=== PATIENT | female | born 1965 | race Caucasian/White ===

== ENCOUNTER 2016-12-13 02:40 | Emergency (ER) | payer OTHER ==
[~2016-12-13] VITALS: Ht 160 cm; Wt 61.2 kg
[2016-12-13 02:45] VITALS: BP 103/74
[2016-12-13] MEDS ORDERED: HYDR-971 PO (03:23)
[2016-12-13] MEDS ORDERED: NAPR500T PO (03:23)
[2016-12-13] MEDS ORDERED: KETOROLAC 60 MG/2 ML VIAL. IM ONE ×2 (03:28→03:30)
--- NOTE | 2016-12-13 03:29 | PHYS DOC ---
General Chief Complaint: ANKLE PROBLEM Stated Complaint: ANKLE INJURY Time Seen by MD: 02:59 Source: patient Exam Limitations: intoxication Problems: History of Present Illness Initial Comments Pt is 51/F to ED with son c/o left ankle pain. Pt states 1-2 hours ago at [employer] she must have twisted her ankle. Complains of sudden onset severe lateral left ankle pain unwilling to bear weight. No numbness/tingling/weakness/radiating sx, admits to "5 beers" tonight. No prearrival treatment, requesting pain meds c/o sharp 10/10 distal fibula swelling noted. No other injury Onset: this morning Severity: severe Pain/Injury Location: left ankle Method of Injury: twisted Modifying Factors: worse with jarring, worse with movement, improves with rest Allergies: Coded Allergies: tramadol (Verified Allergy, Unknown, 12/13/16) bad dreams Uncoded Allergies: florian (Allergy, Unknown, Rash, 12/13/16) Past Medical History Medical History: other (anxiety, depression, spontaneous PTX x 3) Surgical History: noncontributory (CS) Social History Smoker: cigarettes Alcohol: occasionally (heavy tonight, was at [employer] ) Drugs: none Review of Systems Constitutional: denies chills, denies fever Respiratory: denies cough, denies shortness of breath Cardiovascular: denies chest pain, denies palpitations Gastrointestinal: denies nausea, denies vomiting Musculoskeletal: see HPI Psychiatric/Neurological: see HPI Physical Exam General Appearance: WD/WN, moderate distress (etoh odor) Cardiovascular/Respiratory: normal peripheral pulses, no respiratory distress Back: no CVA tenderness, no vertebral tenderness Knees: bilateral knee non-tender, bilateral knee normal inspection, bilateral knee normal range of motion, bilateral knee no evidence of injury Ankles: right ankle non-tender, right ankle normal inspection, right ankle normal range of motion, right ankle no evidence of injury, left ankle other ( point tender distal fibula w/swelling no deformity otherwise normal exam) Feet: bilateral foot non-tender, bilateral foot normal inspection, bilateral foot normal range of motion, bilateral foot no evidence of injury Neurologic/Tendon: normal sensation, normal motor functions, normal tendon functions, responds to pain, no evidence tendon injury Psychiatric: oriented x 3 (intoxicated but appropriate, no lateralizing neurodefs, LLE neurovascularly intact) Skin: normal color, warm/dry Orders, Labs, Meds L Ankle: mildly displaced distal fibula fx interpreted by Dr Reese Neurovasc intact after splinting Departure Time of Disposition: 03:26 Disposition: 01 HOME, SELF-CARE Diagnosis: mildly displaced left distal fibula fracture, alco Condition: GOOD Patient Instructions: Fibular Fracture, Ankle, Adult, Treated with or without Immobilization, RICE - Routine Care for Injuries, [id number] Additional Instructions: RICE, see handout. Stop smoking, seek medical assistance if necessary. Aggressive hydration with gatorade, water. Nonweight bearing crutches only until doctor follow up. Wear splint except when bathing. Rx: naprosyn, [place] 5mg #20 Take norco with food to avoid nausea/vomitting. Take OTC stool softeners and drink extra fluids to avoid opiate associated constipation. Follow up with your doctor Wednesday for recheck. As you are already established with orthopedics, you may alternatively choose to follow up directly with your orthopedic surgeon this week call Wednesday to schedule. Return to ED with new or changing symptoms. HAMZAH REESE DO Dec 13, 2016 03:29
[2016-12-13] MEDS ORDERED: ACETAMINOPHEN/CODEINE 300/30MG 4TABLET STARTPACK. PO ONE ×3 (03:30→04:30)
--- NOTE | 2016-12-13 08:53 | RAD ---
Three-view left ankle radiographs 12/13/2016 Clinical history: Injury with severe left ankle pain. AP, lateral and oblique digital radiographs of left ankle were obtained. An acute transverse fracture of the distal left fibular metaphysis is seen which is approximately 1.4 cm superior to the inferior aspect of the lateral malleolus. The distal fracture fragment is mildly displaced laterally. There is associated soft tissue swelling. No additional fracture is seen. Impression: Acute transverse fracture of the lateral malleolus of the left ankle as outlined above.
== END 2016-12-13 04:00 | disposition home or self-care (01) ==
LOC: ER 02:40
DX: S82.62XA Displaced fracture of lateral malleolus of left fibula, initial encounter for closed fracture (principal); F17.210 Nicotine dependence, cigarettes, uncomplicated; Z88.6 Allergy status to analgesic agent; X58.XXXA Exposure to other specified factors, initial encounter; Y93.89 Activity, other specified; Y99.8 Other external cause status; Y92.89 Other specified places as the place of occurrence of the external cause
CPT/HCPCS: 73610; 96372; 99284; J1885; J3010

== ENCOUNTER 2020-01-24 00:45 | Inpatient (IN) | payer BC, OTHER ==
[2020-01-24] VITALS (20 sets, daily range): BP systolic 108–163; BP diastolic 38–84
[~2020-01-24] VITALS: Ht 160 cm; Wt 66.1 kg
[~2020-01-24 00:45] MED LIST: HYDR-3165 PO; NAPR-683 PO
--- NOTE | 2020-01-24 00:50 | PHYS DOC ---
Past History Past Medical History: Anxiety, Bronchitis, COPD, Depression, Other Past Surgical History: Smoking: Cigarettes Alcohol Use: Occasionally Drug Use: None General Adult HPI: HPI: "I was just trying to kill myself.. I just wanted to go to [facility] to be with my MOM..." I don't seem to be making .. any one at home happy.... ..I took all those tylenol..a 100 of them (extra strength).. and all that happen I got sick and started puking every where..." Patient is a 54 year old female who presents with above hx and complaints of attempting to kill her self by overdose of Tylenol. Patient took approximately [id number] mg tablets of Tylenol at 0030. Pt. at approximately 0130 hrs started having episodes of vomiting. Pt. admit to drinking at least 3 beers tonight. Patient admits to past episodes of depression. Patient states there has been some family social issues which have caused her become more depressed in the last several days. No recent travel. No specific ill contacts. Normally follows with Dr. Troncoso. Review of Systems: Review of Systems: Constitutional: Denies fever or chills Eyes: Denies change in visual acuity HENT: Denies nasal congestion or sore throat Respiratory: Denies cough or shortness of breath Cardiovascular: Denies chest pain or edema GI: Complaints of, nausea, vomiting,. Denies bloody stools or diarrhea : Denies dysuria Musculoskeletal: Denies back pain or joint pain Integument: Denies rash Neurologic: Denies headache, focal weakness or sensory changes Endocrine: Denies polyuria or polydipsia Lymphatic: Denies swollen glands Psychiatric: Complains of depression or anxiety Family History: Family History: Noncontributory Current Medications: Current Meds: See nursing for home meds Allergies: Allergies: Allergies Coded Allergies Type Severity Reaction Last Updated Verified tramadol Allergy Unknown 12/13/16 Yes Uncoded Allergies Type Severity Reaction Last Updated Verified florian Allergy Unknown Rash 12/13/16 Physical Exam: PE: Constitutional: , Moderate emotional distress, appearance of Intoxication HENT: Normocephalic, atraumatic, bilateral external ears normal, oropharynx moist, no oral exudates, nose normal. [] Eyes: PERRLA, EOMI, conjunctiva normal, no discharge. [] Neck: Normal range of motion, no tenderness, supple, no stridor. [] Cardiovascular: Tachycardia heart rate regular rhythm, no murmur [] Lungs & Thorax: Bilateral breath sounds are equal apex with scattered wheezes on auscultation [] Abdomen: Bowel sounds hyperactive,, soft, no tenderness, no masses, no pulsatile masses. Old surgical scar. Skin: Warm, dry, no erythema, no rash. [] Back: No tenderness, no CVA tenderness. [] Extremities: No tenderness, no cyanosis, no clubbing, ROM intact, no edema. No cording appreciated. Neurologic: Alert and oriented X 3, moves all extremities on request, , distal sensory function, no focal deficits noted. Appears to have a dis coordinated gait.. Psychologic: Affect anxious judgement appears obviously impaired and patient appears to be very intoxicated, mood depressed. Admits to suicide attempt with Tylenol EKG: EKG: My interpretation of EKG shows a sinus rhythm at 96 bpm. No findings of acute STEMI of contralateral changes does appear to have some low voltage. [] Radiology/Procedures: Radiology/Procedures: My interpretation chest x-ray shows chronic emphysematous COPD changes. No large consolidation or pneumonia. No free air in the diaphragm. Does have a foreign body area on right axillary area. [] Heart Score: HEART Score for Chest Pain: HEART Score for Chest Pain Response (Comments) Value History Slighlty/Non-Suspicious 0 ECG Nonspecific Repolarizatio 1 Age >45 - < 65 1 Risk Factors 1 or 2 Risk Factors 1 Troponin < Normal Limit 0 Total 3 Risk Factors: Risk Factors: DM, Current or recent (<one month) smoker, HTN, HLP, family history of CAD, obesity. Risk Scores: Score 0 - 3: 2.5% MACE over next 6 weeks - Discharge Home Score 4 - 6: 20.3% MACE over next 6 weeks - Admit for Clinical Observation Score 7 - 10: 72.7% MACE over next 6 weeks - Early Invasive Strategies Course & Med Decision Making: Course & Med Decision Making Pertinent Labs and Imaging studies reviewed. (See chart for details) Discussed presentation, testing and tx plan with . Admit to ICU and start the protocol. Pt. started on NAC 150mg/kg over 60 min., and then 50mg /kg in 500 D5W over next 4hrs. Critical care 90 miln. Impression: 1. Over Dose of Tylenol 2. Suicide Attempt 3. Depression 4. ETOH 100 [] Enriqueta Disclaimer: Enriqueta Disclaimer: This electronic medical record was generated, in whole or in part, using a voice recognition dictation system. Departure Departure: Referrals: TURNER LUNA (PCP) Enriqueta Disclaimer This chart was dictated in whole or in part using Voice Recognition software in a busy, high-work load, and often noisy Emergency Department environment. It may contain unintended and wholly unrecognized errors or omissions. RANJAN BAKER MD Jan 24, 2020 00:50
[2020-01-24] MEDS ORDERED: IV RINGERS SOLUTION,LACTATED 1,000 ML IV SCH ×2 (01:00→03:15)
[2020-01-24 01:21] LABS: BASO % 0 % (0-3); EOS # 0.1 x10^3/uL (0.0-0.7); EOS % 1 % (0-3); HEMATOCRIT 41.4 % (36.0-47.0); HEMOGLOBIN 13.7 g/dL (12.0-15.5); LYMPH # 2.3 x10^3/uL (1.0-4.8); LYMPH % 22 % (24-48); MEAN CORPUSCULAR HEMOGLOBIN 31 pg (25-35); MEAN CORPUSCULAR HGB CONC 33 g/dL (31-37); MEAN CORPUSCULAR VOLUME 94 fL (79-100); MONO # 0.7 x10^3/uL (0.0-1.1); MONO % 6 % (0-9); NEUT # 7.4 x10^3uL (1.8-7.7); NEUT % 70 % (31-73); PLATELET COUNT 272 x10^3/uL (140-400); RED BLOOD COUNT 4.42 x10^6/uL (3.50-5.40); RED CELL DISTRIBUTION WIDTH 14.4 % (11.5-14.5); WHITE BLOOD COUNT 10.5 x10^3/uL (4.0-11.0)
[2020-01-24 01:27] LABS: BACTERIA,URINE 0 /HPF (0-FEW); BILIRUBIN,URINE NEG (NEG); CLARITY,URINE CLEAR; COLOR,URINE YELLOW; GLUCOSE,URINE NEG (NEG); NITRITE,URINE NEG (NEG); RBC,URINE 0 /HPF (0-2); SQUAMOUS EPITHELIAL CELL,UR FEW /LPF; UROBILINOGEN,URINE 0.2 mg/dL (0.2 mg/dL); WBC,URINE RARE /HPF (0-4)
[2020-01-24 01:29] LABS: CALCIUM 8.6 mg/dL (8.5-10.1); CREATININE 0.8 mg/dL (0.6-1.0); GFR 74.7; POTASSIUM 3.9 mmol/L (3.5-5.1)
[2020-01-24 01:30] LABS: BARBITURATES NEG (NEG); BENZODIAZEPINES NEG (NEG); CANNABINOIDS NEG (NEG); COCAINE NEG (NEG); METHADONE NEG (NEG); OPIATES NEG (NEG); PHENCYCLIDINE NEG (NEG)
[2020-01-24 01:42] LABS: AMPHETAMINE/METHAMPHETAMINE NEG (NEG)
[2020-01-24 01:42] LABS: ALBUMIN 3.7 g/dL (3.4-5.0); DIRECT BILIRUBIN 0.1 mg/dL (0.0-0.2); ETHANOL 100 mg/dL (0-10); MAGNESIUM 1.9 mg/dL (1.8-2.4); SALIC 5.1 mg/dL (2.8-20.0); TOTAL BILIRUBIN 0.3 mg/dL (0.2-1.0); TOTAL PROTEIN 7.6 g/dL (6.4-8.2)
[2020-01-24] MEDS ORDERED: FOLIC ACID 1 MG TABLET PO ONE (02:00)
[2020-01-24] MEDS ORDERED: MVI, ADULT NO.4 WITH VIT K 10 ML, THIAMINE INJ 100 MG in IV RINGERS SOLUTION,LACTATED 1... IV ONE (02:00)
[2020-01-24] MEDS ORDERED: THIAMINE 200 MG/2 ML VIAL. IV ONE (02:36)
[2020-01-24] MEDS ORDERED: MVI, ADULT NO.4 WITH VIT K 10 ML VIAL IV ONE (02:36)
[2020-01-24 02:49] LABS: ACETAMIN 428.4 mcg/mL (10-30)
[2020-01-24] MEDS ORDERED: DEXTROSE 5% IV ONE ×5 (03:15→19:30)
[2020-01-24] MEDS ORDERED: ACETYLCYSTEINE IV ONE ×5 (03:15→19:30)
[2020-01-24] MEDS ORDERED: ONDANSETRON PF 4 MG/2 ML VIAL. IVP PRN (03:15)
[2020-01-24] MEDS ORDERED: ACETYLCYSTEINE INJ 6 GM/30 ML VIAL IV ONE ×3 (03:29→04:13)
[2020-01-24] MEDS ORDERED: IV DEXTROSE 5% 250 ML IV ONE (03:29)
[2020-01-24] MEDS ORDERED: IV DEXTROSE 5% 500 ML ONE (04:13)
[2020-01-24] MEDS ORDERED: PARO40TA3 PO (04:47)
[2020-01-24] MEDS ORDERED: IPRATRPIUM/ALBUTEROL 0.5/2.5MG 3 ML NEBU. ONE (05:29)
--- NOTE | 2020-01-24 05:50 | RAD ---
EXAM: CHEST ONE VIEW. HISTORY: Overdose, altered mental status. COMPARISON: 10/13/2009. FINDINGS: A frontal view of the chest is obtained. Mild interstitial opacities in the bases may reflect atelectasis. There is a calcified granuloma in the left base. There is no pneumothorax or pleural effusion. The heart is not enlarged. IMPRESSION: 1. Bibasilar atelectasis versus mild atypical infiltrates. Electronically signed by: Brian Royal MD (01/24/2020 5:47 AM) [facility]
[2020-01-24] MEDS: IPRATRPIUM/ALBUTEROL 0.5/2.5MG 3 ML NEBU. NEB SCH ×4 (05:52→19:17)
[2020-01-24 07:21] LABS: ACETAMIN 387.6 mcg/mL (10-30); SALIC 3.9 mg/dL (2.8-20.0)
--- NOTE | 2020-01-24 09:46 | EKG ---
[address] [address] Test Date: 2020-01-24 Test Time: 02:22:51 Pat Name: DELVIN CAMPBELL Department: Room: Gender: F Mining Technician: : 1965 Requested By: RANJAN BAKER Order Number: [id number] Reading MD: Measurements Intervals [place] Rate: 96 P: 53 MN: 138 QRS: 79 QRSD: 72 T: 71 QT: 346 QTc: 438 Interpretive Statements SINUS RHYTHM NORMAL ECG RI6.02 No previous ECG available for comparison
[2020-01-24 11:41] LABS: ACETAMIN 193.3 mcg/mL (10-30)
[2020-01-24 16:39] LABS: BASO % 1 % (0-3); EOS % 0 % (0-3); HEMATOCRIT 34.2 % (36.0-47.0); HEMOGLOBIN 11.4 g/dL (12.0-15.5); LYMPH # 1.7 x10^3/uL (1.0-4.8); LYMPH % 28 % (24-48); MEAN CORPUSCULAR HEMOGLOBIN 31 pg (25-35); MEAN CORPUSCULAR HGB CONC 33 g/dL (31-37); MEAN CORPUSCULAR VOLUME 92 fL (79-100); MONO # 0.3 x10^3/uL (0.0-1.1); MONO % 5 % (0-9); NEUT # 3.9 x10^3uL (1.8-7.7); NEUT % 66 % (31-73); PLATELET COUNT 229 x10^3/uL (140-400); RED BLOOD COUNT 3.72 x10^6/uL (3.50-5.40); RED CELL DISTRIBUTION WIDTH 14.4 % (11.5-14.5); WHITE BLOOD COUNT 5.9 x10^3/uL (4.0-11.0)
[2020-01-24 16:40] LABS: CALCIUM 7.5 mg/dL (8.5-10.1); CREATININE 0.8 mg/dL (0.6-1.0); GFR 74.7; POTASSIUM 3.3 mmol/L (3.5-5.1)
[2020-01-24 16:52] LABS: ACETAMIN 74.9 mcg/mL (10-30)
[2020-01-24 17:04] LABS: ALBUMIN 2.6 g/dL (3.4-5.0); DIRECT BILIRUBIN 0.2 mg/dL (0.0-0.2); TOTAL BILIRUBIN 0.3 mg/dL (0.2-1.0); TOTAL PROTEIN 5.5 g/dL (6.4-8.2)
--- NOTE | 2020-01-24 18:06 | HP ---
ADMIT DATE: 01/24/2020 HISTORY OF PRESENT ILLNESS: The patient is a 54-year-old female patient, who was brought to the Emergency Room stating that she was trying to kill herself. "I just wanted to go to [facility] to be with my mom. I don't seem to be making anyone at home happy. I took all these Tylenol, 100 of them extra strength and all that happened, I got sick and started puking everywhere." She apparently attempted to kill herself by overdose of Tylenol. The patient took approximately 100 x 500 mg tablet Tylenol. At approximately 1:30 p.m., started having episodes of vomiting. The patient admits to drinking at least 3 beers and she admits to past episode of depression. She stated there has been some family side of issues, which has caused her to become more depressed in the last several days. No recent travel or specific ill contact. She normally follows with Dr. Boyer. She was evaluated in the Emergency Room and was diagnosed with overdose of Tylenol, suicidal attempt, depression and alcohol abuse. Her Tylenol level at around almost 1 o'clock this afternoon was 428. She was started on acetylcysteine treatment after contacting the Poison Control Center. PAST MEDICAL HISTORY: Significant for depression, COPD and anxiety. PAST SURGICAL HISTORY: Significant for . ALLERGIES: She is allergic to TRAMADOL AND ZINC. FAMILY HISTORY: Apparently, her mother has committed suicide. SOCIAL HISTORY: She lives with 2 of her children, one of them is 16 years old. She smokes and drinks alcohol occasionally, but does not use any drugs. She currently works at [employer]. She apparently stated that she has changed jobs about 3 times and has been under severe financial stress after her son moved back with her. PHYSICAL EXAMINATION: GENERAL: On arrival to the Emergency Room, the patient was in moderate emotional distress and appearance of intoxication. However, there was no pallor, jaundice, cyanosis or thyromegaly. No jugular venous distention or limb edema. VITAL SIGNS: Her heart rate was 77, blood pressure was 112/61, temperature 98.6, respiratory rate 22, and oxygen saturation was 98% on room air. HEAD, EYES, EARS, NOSE AND THROAT: Showed normocephalic, atraumatic. NECK: Supple. HEART: Showed normal first and second heart sounds. No gallop, rub or murmur. CHEST: Clear to auscultation. No crepitation or rhonchi. ABDOMEN: Distended, soft, nontender. NEUROLOGIC: She was alert, oriented x 3. EXTREMITIES: She moves all her extremities spontaneously. PSYCHOLOGIC: Affect was anxious. Judgment appears obviously impaired. The patient appears to be very intoxicated and depressed. Admits to suicide attempt with Tylenol. She has had an EKG done, which showed that she was in sinus rhythm at 96 beats per minute with no finding of acute ST-segment elevation. Her chest x-ray showed chronic emphysematous COPD changes. No large consolidation or pneumonia. No free air in diaphragm. Does have foreign body area in the right axillary area. LABORATORY DATA: Showed a white cell count of 10,500, hemoglobin 13.7, hematocrit 41, MCV 94 and platelet count 172,000 with normal manual differential. Her prothrombin time initially was 10.7, INR of 1, aPTT was 25. Four hours later, her prothrombin time was 12.1, INR 1.2, APTT was 29. Her chemistry showed a serum sodium 136, potassium 3.9, chloride 99, bicarbonate 22, anion gap of 15, BUN 7, creatinine 0.8, estimated GFR was 74 mL per minute. Her glucose 133, calcium was 8.6, magnesium was 1.9. Total bilirubin, AST, ALT, alkaline phosphatase were normal. Her total protein was 7.6, albumin was 3.7. Her urinalysis was essentially unremarkable and urine toxic screen showed her acetaminophen level was 428.4, for which she was started on acetylcysteine as recommended by Poison Control Center. Once her Tylenol level drops down to below therapeutic level and the patient remains stabilized, we will consult the psychiatrist. I will repeat all her labs again tomorrow. This is a 54-year-old female patient who was admitted with suicidal attempt with an overdose of Tylenol of about 50 grams. She is known to have COPD and depression, for which she is on Prozac. SULTANA NAVARRO MD DR: VEE/saba JOB#: [id number] / [id number]
[2020-01-24] MEDS: POTASSIUM CL 40MEQ IN 0.9%NACL 1,000 ML IV SCH (18:39)
--- NOTE | 2020-01-24 20:47 | PDOC ---
Exam Note: Ortiz Note: Please also refer to the separate dictated note~for this date of service dictated separately.~Patient seen individually. Discussed the patient with Nursing staff reviewed the chart.~Reviewed interim history and current functioning. Reviewed vital signs,~Labs/ Radiology~and current medications noted below. Continue current treatment with the changes noted in the dictated addendum note Assessment: Vital Signs/I&O: Vital Signs Date Time Temp Pulse Resp B/P (MAP) Pulse Ox O2 Delivery O2 Flow Rate FiO2 01/24/20 20:00 91 11 154/77 (102) 95 Room Air 01/24/20 19:00 97.6 I & O 01/23/20 01/23/20 01/24/20 14:59 22:59 06:59 Intake Total 2250 ml Output Total 50 ml Balance 2200 ml Labs: Laboratory Tests Test 01/24/20 00:58 01/24/20 01:05 01/24/20 06:23 01/24/20 11:18 White Blood Count 10.5 x10^3/uL (4.0-11.0) Red Blood Count 4.42 x10^6/uL (3.50-5.40) Hemoglobin 13.7 g/dL (12.0-15.5) Hematocrit 41.4 % (36.0-47.0) Mean Corpuscular Volume 94 fL (79-100) Mean Corpuscular Hemoglobin 31 pg (25-35) Mean Corpuscular Hemoglobin Concent 33 g/dL (31-37) Red Cell Distribution Width 14.4 % (11.5-14.5) Platelet Count 272 x10^3/uL (140-400) Neutrophils (%) (Auto) 70 % (31-73) Lymphocytes (%) (Auto) 22 % (24-48) L Monocytes (%) (Auto) 6 % (0-9) Eosinophils (%) (Auto) 1 % (0-3) Basophils (%) (Auto) 0 % (0-3) Neutrophils # (Auto) 7.4 x10^3uL (1.8-7.7) Lymphocytes # (Auto) 2.3 x10^3/uL (1.0-4.8) Monocytes # (Auto) 0.7 x10^3/uL (0.0-1.1) Eosinophils # (Auto) 0.1 x10^3/uL (0.0-0.7) Basophils # (Auto) 0.0 x10^3/uL (0.0-0.2) Prothrombin Time 10.7 SEC (9.4-11.4) Prothrombin Time INR 1.0 (0.9-1.1) Activated Partial Thromboplast Time 25 SEC (23-33) Sodium Level 136 mmol/L (136-145) Potassium Level 3.9 mmol/L (3.5-5.1) Chloride Level 99 mmol/L (98-107) Carbon Dioxide Level 22 mmol/L (21-32) Anion Gap 15 (6-14) H Blood Urea Nitrogen 7 mg/dL (7-20) Creatinine 0.8 mg/dL (0.6-1.0) Estimated GFR (Cockcroft-Gault) 74.7 Glucose Level 133 mg/dL (70-99) H Calcium Level 8.6 mg/dL (8.5-10.1) Magnesium Level 1.9 mg/dL (1.8-2.4) Total Bilirubin 0.3 mg/dL (0.2-1.0) Direct Bilirubin 0.1 mg/dL (0.0-0.2) Aspartate Amino Transferase (AST) 17 U/L (15-37) Alanine Aminotransferase (ALT) 20 U/L (14-59) Alkaline Phosphatase 78 U/L (46-116) Creatine Kinase 88 U/L (26-192) Troponin I Quantitative < 0.017 ng/mL (0-0.055) HF-Avr-E-Type Natriuretic Peptide 42 pg/mL (0-124) Total Protein 7.6 g/dL (6.4-8.2) Albumin 3.7 g/dL (3.4-5.0) Lipase 188 U/L (73-393) Thyroid Stimulating Hormone (TSH) 2.455 uIU/mL (0.358-3.740) Salicylates Level 5.1 mg/dL (2.8-20.0) 3.9 mg/dL (2.8-20.0) Salicylate Last Dose Date Unknown 01/23/20 Salicylate Last Dose Time Unknown 2300 Acetaminophen Level 428.4 mcg/mL (10-30) *H 387.6 mcg/mL (10-30) *H 193.3 mcg/mL (10-30) H Acetaminophen Last Dose Date Unknown 01/23/20 01/24/20 Acetaminophen Last Dose Time Unknown 2300 0000 Ethyl Alcohol Level 100 mg/dL (0-10) H Urine Collection Type Unknown Urine Color Yellow Urine Clarity Clear Urine pH 5.0 Urine Specific [place] <=1.005 Urine Protein Neg (NEG-TRACE) Urine Glucose (UA) Neg mg/dL (NEG) Urine Ketones (Stick) Neg mg/dL (NEG) Urine Blood Neg (NEG) Urine Nitrite Neg (NEG) Urine Bilirubin Neg (NEG) Urine Urobilinogen Dipstick 0.2 mg/dL (0.2 mg/dL) Urine Leukocyte Esterase Neg (NEG) Urine RBC 0 /HPF (0-2) Urine WBC Rare /HPF (0-4) Urine Squamous Epithelial Cells Few /LPF Urine Bacteria 0 /HPF (0-FEW) Urine Opiates Screen Neg (NEG) Urine Methadone Screen Neg (NEG) Urine Barbiturates Neg (NEG) Urine Phencyclidine Screen Neg (NEG) Urine Amphetamine/Methamphetamine Neg (NEG) Urine Benzodiazepines Screen Neg (NEG) Urine Cocaine Screen Neg (NEG) Urine Cannabinoids Screen Neg (NEG) Urine Ethyl Alcohol Pos (NEG) Glucose (Fingerstick) 140 mg/dL (70-99) H Test 01/24/20 16:23 01/24/20 16:26 White Blood Count 5.9 x10^3/uL (4.0-11.0) Red Blood Count 3.72 x10^6/uL (3.50-5.40) Hemoglobin 11.4 g/dL (12.0-15.5) L Hematocrit 34.2 % (36.0-47.0) L Mean Corpuscular Volume 92 fL (79-100) Mean Corpuscular Hemoglobin 31 pg (25-35) Mean Corpuscular Hemoglobin Concent 33 g/dL (31-37) Red Cell Distribution Width 14.4 % (11.5-14.5) Platelet Count 229 x10^3/uL (140-400) Neutrophils (%) (Auto) 66 % (31-73) Lymphocytes (%) (Auto) 28 % (24-48) Monocytes (%) (Auto) 5 % (0-9) Eosinophils (%) (Auto) 0 % (0-3) Basophils (%) (Auto) 1 % (0-3) Neutrophils # (Auto) 3.9 x10^3uL (1.8-7.7) Lymphocytes # (Auto) 1.7 x10^3/uL (1.0-4.8) Monocytes # (Auto) 0.3 x10^3/uL (0.0-1.1) Eosinophils # (Auto) 0.0 x10^3/uL (0.0-0.7) Basophils # (Auto) 0.0 x10^3/uL (0.0-0.2) Prothrombin Time 12.1 SEC (9.4-11.4) H Prothrombin Time INR 1.2 (0.9-1.1) H Activated Partial Thromboplast Time 29 SEC (23-33) Sodium Level 132 mmol/L (136-145) L Potassium Level 3.3 mmol/L (3.5-5.1) L Chloride Level 101 mmol/L (98-107) Carbon Dioxide Level 22 mmol/L (21-32) Anion Gap 9 (6-14) Blood Urea Nitrogen 9 mg/dL (7-20) Creatinine 0.8 mg/dL (0.6-1.0) Estimated GFR (Cockcroft-Gault) 74.7 Glucose Level 131 mg/dL (70-99) H Calcium Level 7.5 mg/dL (8.5-10.1) L Total Bilirubin 0.3 mg/dL (0.2-1.0) Direct Bilirubin 0.2 mg/dL (0.0-0.2) Aspartate Amino Transferase (AST) 40 U/L (15-37) H Alanine Aminotransferase (ALT) 46 U/L (14-59) Alkaline Phosphatase 59 U/L (46-116) Total Protein 5.5 g/dL (6.4-8.2) L Albumin 2.6 g/dL (3.4-5.0) L Acetaminophen Level 74.9 mcg/mL (10-30) H Acetaminophen Last Dose Date None Acetaminophen Last Dose Time None Glucose (Fingerstick) 135 mg/dL (70-99) H Current Medications: Meds: Current Medications Medications (Trade) Dose Ordered Sig/Melodie Route PRN Reason Start Time Stop Time Status Last Admin Dose Admin Lactated Ringer's 1,000 ml @ 1,000 mls/hr Q1H IV 01/24/20 01:00 01/24/20 01:59 DC 01/24/20 02:27 Multivitamins/ Minerals 10 ml/ Thiamine HCl 100 mg/Lactated Ringer's 1,011.3 ml @ 1,011.3 mls/hr 1X ONCE IV 01/24/20 02:00 01/24/20 02:59 DC 01/24/20 02:00 Folic Acid (Folic Acid) 1 mg 1X ONCE PO 01/24/20 02:00 01/24/20 02:01 DC 01/24/20 03:37 Acetylcysteine 9.68 gm/Dextrose 248.4 ml @ 200 mls/hr 1X ONCE IV 01/24/20 03:15 01/24/20 04:29 DC 01/24/20 03:15 Ondansetron HCl (Zofran) 4 mg PRN Q4HRS PRN IVP NAUSEA/VOMITING 01/24/20 03:15 01/25/20 03:14 01/24/20 05:03 Albuterol/ Ipratropium (Duoneb) 3 ml RTQID NEB 01/24/20 08:00 01/25/20 07:59 01/24/20 19:17 Lactated Ringer's 1,000 ml @ 160 mls/hr Q6H15M IV 01/24/20 03:15 01/24/20 17:13 DC 01/24/20 05:48 Acetylcysteine 3.2 gm/Dextrose 516 ml @ 129 mls/hr 1X ONCE IV 01/24/20 04:30 01/24/20 08:29 DC 01/24/20 04:30 Acetylcysteine 6.45 gm/Dextrose 1,032.25 ml @ 64.516 mls/hr 1X ONCE IV 01/24/20 08:30 01/25/20 00:29 01/24/20 09:40 Potassium Chloride/Sodium Chloride 1,000 ml @ 100 mls/hr Q10H IV 01/24/20 17:15 01/24/20 18:39 Acetylcysteine 6.6 gm/Dextrose 1,033 ml @ 129.125 mls/hr 1X ONCE IV 01/24/20 19:30 01/25/20 03:29 01/24/20 19:49 I have reviewed the current psychotropics carefully including drug interactions. Risk benefit ratio favors no change other than as noted in my dictated progress note. Diagnosis: Problems: (1) Suicidal overdose IVORY LEVY MD Jan 24, 2020 20:47
[2020-01-25] VITALS (16 sets, daily range): BP systolic 132–161; BP diastolic 67–81
[2020-01-25 03:37] LABS: ACETAMIN 7.2 mcg/mL (10-30)
[2020-01-25] MEDS: POTASSIUM CL 40MEQ IN 0.9%NACL 1,000 ML IV SCH ×2 (03:56→13:15)
[2020-01-25] MEDS ORDERED: ACETYLCYSTEINE IV ONE ×2 (04:00→14:00)
[2020-01-25] MEDS ORDERED: DEXTROSE 5% IV ONE ×2 (04:00→14:00)
[2020-01-25] MEDS ORDERED: ACETYLCYSTEINE INJ 6 GM/30 ML VIAL IV ONE (04:01)
[2020-01-25] MEDS: IPRATRPIUM/ALBUTEROL 0.5/2.5MG 3 ML NEBU. NEB SCH (04:43)
--- NOTE | 2020-01-25 08:00 | CONS ---
DATE OF CONSULTATION: 01/24/2020 PSYCHIATRIC CONSULTATION This note covers elements not covered in my initial note, 01/24/2020. IDENTIFYING DATA: The patient is a 54-year-old female, seen in ICU bed 4, [facility], for a psychiatric consult requested by Dr. Wise on account of the patient's suicide attempt with an overdose of 500 mg Tylenol #100, after she had imbibed alcohol and this happened on 01/23/2020. Reportedly, she did not tell anyone, but her son discovered her and then called emergency services and she was admitted to the ICU. The patient made statements that she was trying to kill herself, but was sorry she did not do that. CHIEF COMPLAINT: "I feel very embarrassed at what I did. No, I would never do it again. I have never done it in the past. There is a lot of stress. I am a single parent and a 30-year-old son is back home living with me since he is getting a divorce. My 16-year-old son lives at home as well. I work at the [employer]." HISTORY OF PRESENT ILLNESS: The patient states she took the overdose because she just [facility] "to be with my mom." Reportedly, the patient's mother and sister had committed suicide in the past. The patient stated she felt she was not making anyone at home happy. She took the overdose around 1:30 p.m., started having vomiting and has had 3 beers before that. She has been on Paxil for an extended period of time by her primary care physician, Dr. Rojas. No current psychotic symptoms and she currently denies current active suicidal ideation. No homicidal ideation. PAST PSYCHIATRIC HISTORY: She has been in psychotherapy in the past with Felecia Salamanca, but not for several years. PAST MEDICAL HISTORY: COPD, anxiety. PAST SURGICAL HISTORY: . ALLERGIES: TRAMADOL, ZINC. SOCIAL HISTORY: The patient lives at home with her 2 children, sons, age 30 and 16. She works at the [employer]. She uses alcohol socially. MENTAL STATUS EXAMINATION: The patient is awake, alert, oriented. Speech is coherent. Thought processes goal directed. Intellect average. Insight good. Judgment intact. Mood is somewhat anxious, dysphoric, but denies active suicidal or homicidal ideation. Attention span is fair. LABORATORY DATA: Reviewed. IMPRESSION: Major depressive disorder, recurrent versus adjustment disorder with depressed mood and anxiety. Status post suicide attempt. Rest as above. RECOMMENDATIONS: From a psychiatric standpoint, the patient currently denies suicidal ideation. She agrees to start psychotherapy again with Felecia Salamanca or at the [facility] and see the psychiatrist at the [facility]. She may restart her Paxil at discharge since it had been stopped during this hospitalization per Dr. Lagunas. Further treatment would have to be maintained outpatient including psychotherapy and psychiatric visits. Dr. Lagunas, thank you for the opportunity to participate in your patient's care. We will follow with you. IVORY LEVY MD DR: KRYSTIAN/saba JOB#: [id number] / [id number]
[2020-01-25 11:41] LABS: BASO % 1 % (0-3); EOS % 1 % (0-3); HEMATOCRIT 34.5 % (36.0-47.0); HEMOGLOBIN 11.3 g/dL (12.0-15.5); LYMPH # 1.3 x10^3/uL (1.0-4.8); LYMPH % 24 % (24-48); MEAN CORPUSCULAR HEMOGLOBIN 31 pg (25-35); MEAN CORPUSCULAR HGB CONC 33 g/dL (31-37); MEAN CORPUSCULAR VOLUME 93 fL (79-100); MONO # 0.3 x10^3/uL (0.0-1.1); MONO % 5 % (0-9); NEUT % 70 % (31-73); PLATELET COUNT 199 x10^3/uL (140-400); RED BLOOD COUNT 3.71 x10^6/uL (3.50-5.40); RED CELL DISTRIBUTION WIDTH 14.2 % (11.5-14.5); WHITE BLOOD COUNT 5.6 x10^3/uL (4.0-11.0)
[2020-01-25 11:46] LABS: ALT (SGPT) 37 U/L (14-59); AST (SGOT) 24 U/L (15-37)
[2020-01-25 11:49] LABS: ALBUMIN 2.5 g/dL (3.4-5.0); ALBUMIN/GLOBULIN RATIO 0.9 (1.0-1.7); CALCIUM 8.3 mg/dL (8.5-10.1); CREATININE 0.7 mg/dL (0.6-1.0); GFR 87.2; POTASSIUM 4.1 mmol/L (3.5-5.1); TOTAL BILIRUBIN 0.2 mg/dL (0.2-1.0); TOTAL PROTEIN 5.4 g/dL (6.4-8.2)
[2020-01-25 18:04] LABS: ACETAMIN < 2.0 mcg/mL (10-30)
--- NOTE | 2020-01-25 20:04 | PN ---
DATE: 01/25/2020 SUBJECTIVE: The patient is resting, slightly propped up in bed, in no apparent distress. She is awake, alert. On questioning her, denied any complaint. Nursing staff did not voice any concern and stated that she has an uneventful night. PHYSICAL EXAMINATION: GENERAL: When I examined her, she looked well and was definitely no jaundice or cyanosis. No lymphadenopathy, no thyromegaly. No jugular venous distention or limb edema. VITAL SIGNS: Her heart rate was 101, blood pressure was 148/75, temperature was 99. Her respiratory rate was 30 and oxygen saturation was 96% on room air. HEAD, EYES, EARS, NOSE AND THROAT: Showed normocephalic, atraumatic. NECK: Supple. CARDIAC: Normal first and second heart sounds. No gallop, rub or murmur. CHEST: Clear to auscultation. No crepitation or rhonchi. ABDOMEN: Distended, soft, nontender. No guarding or rigidity. No organomegaly. All hernial orifice intact. Bowel sounds normal. NEUROLOGIC: She was awake, alert, responding appropriately. All cranial nerves intact. She moves extremities without difficulty. She ambulates without assistance or assistive devices. Her intake was 2215, no output was recorded. LABORATORY DATA: Her lab work this morning showed a white cell count 5600, hemoglobin 11, hematocrit 34, MCV 93, and platelet count of 199,000. Her chemistry showed a serum sodium 140, potassium 4.1, chloride 110, bicarbonate 22, anion gap of 8, BUN 5, creatinine 0.7, estimated GFR was 87 mL per minute. Her glucose 128, calcium was 8.3. Total bilirubin, AST, ALT, alkaline phosphatase were normal. Total protein was 5.4. Albumin was 2.5. Her acetaminophen level is 3 mcg/mL. ASSESSMENT: 1. Suicidal attempt with an overdose of Tylenol of about 50 grams. 2. The patient is known to have chronic obstructive pulmonary disease. 3. Depression and anxiety. The patient was treated with acetylcysteine as per protocol under the guidance of [facility]. She was also hypokalemic and we did replenish her potassium and her serum potassium this morning was up to 4.1 from 3.3. No derangement of her liver enzymes. We did consult the [facility] for evaluation and treatment as she probably needs an inpatient psychiatric treatment. SULTANA NAVARRO MD DR: Juan Luis JOB#: [id number] / [id number]
== END 2020-01-25 20:05 | disposition home or self-care (01) | DRG 918 ==
LOC: ER 00:45 → ICU 03:45
PROVIDERS: ADMIT Hospitalist; ATTEND Hospitalist
DX: T39.1X2A Poisoning by 4-Aminophenol derivatives, intentional self-harm, initial encounter (principal); F33.9 Major depressive disorder, recurrent, unspecified; F41.9 Anxiety disorder, unspecified; J44.9 Chronic obstructive pulmonary disease, unspecified; F17.210 Nicotine dependence, cigarettes, uncomplicated; F10.10 Alcohol abuse, uncomplicated; E87.6 Hypokalemia; Y90.5 Blood alcohol level of 100-119 mg/100 ml; Z88.5 Allergy status to narcotic agent; Z88.8 Allergy status to other drugs, medicaments and biological substances; Y92.89 Other specified places as the place of occurrence of the external cause; Z98.891 History of uterine scar from previous surgery
CPT/HCPCS: 36415; 71045; 80048; 80053; 80076; 80307; 80329; 81001; 82550; 82947; 83690; 83735; 83880; 84443; 84450; 84460; 84484; 85025; 85610; 85730; 93005; 94640; 96365; 96366; 96368; G0238; G0480; J0132; J2405; J7120; 99285-25

== ENCOUNTER → 2020-09-26 | Outpatient (CLI) | payer OTHER ==
[2020-01-25 18:17] VITALS: BP 132/67
[~2020-09-26] MED LIST changes: +PARO40TA3 PO
--- NOTE | 2020-09-26 14:08 | RAD ---
XR HAND_LEFT 3 VIEWS History: Reason: SMASHED HAND IN GATE THIS AM, PAIN IN 2ND DIGIT / Spl. Instructions: UNABLE TO REMOV E RING / History: Technique: 3 views left hand Comparison: None. Findings: Normal alignment. No fracture. Impression: 1. No acute osseous abnormality. Electronically signed by: Macho Nj DO (09/26/2020 2:05 PM) [id number]
== END ==
LOC: RAD 13:14
PROVIDERS: ATTEND Nurse Practitioner Family
DX: S67.22XA Crushing injury of left hand, initial encounter (principal); X58.XXXA Exposure to other specified factors, initial encounter; Y92.89 Other specified places as the place of occurrence of the external cause; Y93.89 Activity, other specified; Y99.8 Other external cause status
CPT/HCPCS: 73130

== ENCOUNTER → 2020-10-15 | Outpatient (CLI) | payer OTHER ==
[2020-01-25 18:17] VITALS: BP 132/67
--- NOTE | 2020-10-15 16:19 | RAD ---
Left hand 3 views: Reason for examination: Fifth metacarpal pain. Comparison is made to previous study dated 09/26/2020. No acute fracture or dislocation is seen. The bone density is normal. No abnormal periosteal reaction is seen. Joint spaces are maintained. IMPRESSION: No acute abnormality evident in the left hand. Electronically signed by: Kari Morgan MD (10/15/2020 4:16 PM) SEFERINO
== END ==
LOC: RAD 15:52
PROVIDERS: ATTEND Nurse Practitioner Family
DX: S60.222S Contusion of left hand, sequela (principal); X58.XXXS Exposure to other specified factors, sequela
CPT/HCPCS: 73130